=== PATIENT | male | born 2005 | race Caucasian/White ===

== ENCOUNTER 2024-02-27 18:19 | Emergency (ER) | payer OTHER, SELFPAY ==
[2024-02-27 18:35] VITALS: BP 132/78; PULSE 93; RESP 18; TEMP 36.9; O2SAT 100
--- NOTE | 2024-02-27 21:00 | PC.NURSE ---
AT 2100 ON 02/27/2024 THIS PT PRESENTS TO INTAKE DESK AND STATES THAT HE IS LEAVING. PT WAS INSTRUCTED TO RETURN TO ANY ER IF HIS S/S WORSEN OR RETURN. PT AND HIS MOTHER BOTH AMBULATE OUT OF ED WITH STEADY INDEPENDENT GAITS AT THIS TIME. PT APPEARS TO BE IN NO ACUTE DISTRESS.
== END 2024-02-27 21:00 | disposition left against medical advice (07) ==
LOC: ANHED 21:09
DX: S09.90XA Unspecified injury of head, initial encounter (principal); R51.9 Headache, unspecified; R11.0 Nausea; W22.8XXA Striking against or struck by other objects, initial encounter
CPT/HCPCS: 99199

== ENCOUNTER 2024-03-02 16:09 | Emergency (ER) | payer OTHER, SELFPAY ==
--- NOTE | ~2024-03-02 | CT_ITS ---
EXAMINATION: CT brain wo con DATE: 03/02/2024 17:03 INDICATION: head injury . TECHNIQUE: Computed tomography (CT) of the head was performed without intravenous contrast. The mA wa s adjusted according to patient size. Iterative reconstruction technique was employed. The dose-lengt h product was 681.00 mGy-cm. COMPARISON: None. FINDINGS: No acute intracranial hemorrhage or extra-axial fluid collection. No hydrocephalus, mass, or herniation. No acute ischemic infarct. Unremarkable dural venous sinus attenuation. No acute osseous abnormality. The aerated spaces are clear. IMPRESSION: No acute intracranial process. Reviewed, dictated and finalized at location K. [employer] CASE MANAGER
[2024-03-02 16:18] VITALS: BP 136/67; PULSE 105; RESP 14; TEMP 36.3; O2SAT 100
--- NOTE | 2024-03-02 16:20 | ED_ITS ---
HPI - Head Injury General Chief complaint: Head Injury Stated complaint: blunt force trauma to the head at work Time Seen by Provider: 03/02/24 17:24 Focused HPI: 18-year-old male presents to the emergency department for head injury that occurred 5 days ago. Patient states that it was a work injury. States he was working on a vehicle when a large piece of metal hit him in the head and left cheek. He presents with a healing small laceration to the left zygomatic bone. States he did not lose consciousness. He is not anticoagu lated. No ocular injury. States he has been having some intermittent nausea and headache since the injury. GENERAL: Well-appearing, well-nourished, and in no acute distress. HEAD: Normocephalic, atraumatic. CHEST: Clear to auscultation. ?No respiratory distress. HEART: Regular rate and rhythm.? NEURO: ?Alert and oriented x3. Patient screened in triage and initial orders placed.? ?Additional care and disposition to be based upon?diagnostic testing and treatment. History of Present Illness HPI Narrative: Agree with the above note. Review of Systems Review of Systems: All systems reviewed & are unremarkable except as noted in HPI and below Exam Narrative: GENERAL: Well-appearing, well-nourished, and in no acute distress. HEAD: Normocephalic, atraumatic. EYES: PERRLA and EOMI. ENT: Nares clear, no rhinorrhea or epistaxis. Mucous membranes moist. NECK: No midline cervical spinous tenderness, crepitus, step-offs or CHEST: Clear to auscultation. No respiratory distress. HEART: Regular rate and rhythm. No murmur heard. Normal peripheral pulses. ABDOMEN: Soft, nontender, nondistended, normal active bowel sounds. EXTREMITIES: Normal range of motion. No edema. SKIN: Essentially 1 cm laceration to overlying wounds, erythema, induration, fluctuance NEURO: No focal deficits. Alert and oriented x3. Cranial nerves 2-12 intact. Strength 5 out 5 in BUE and BLE. Sensation intact throughout. Normal [id number]. No pronator drift. Course Vital Signs Vital signs: Vital Signs Temperature 97.4 F L 03/02/24 16:18 Pulse Rate 105 H 03/02/24 16:18 Respiratory Rate 14 03/02/24 16:18 Blood Pressure 136/67 03/02/24 16:18 Pulse Oximetry 100 03/02/24 16:18 Temperature 97.4 F L 03/02/24 16:18 Pulse Rate 105 H 03/02/24 16:18 Respiratory Rate 14 03/02/24 16:18 Blood Pressure 136/67 03/02/24 16:18 Pulse Oximetry 100 03/02/24 16:18 MDM - Head Injury MDM Narrative Medical decision making narrative: 18-year-old male presents to emergency department for closed head injury that occurred 5 days ago while at work. See HPI for further history. Vitals with mild tachycardia 105, otherwise unremarkable. Patient is neurovascularly intact with no focal deficits. CT of the head shows no acute intracranial abnormality. There is a well-healing laceration to the left zygomatic bone with overlying skin changes or evidence of secondary infection. Patient was updated on results and advised follow-up with PCP. Discussed strict ED return precautions and cognitive rest with possible concussion. He was given Zofran ibuprofen symptoms advised to follow. Discussed return precautions. He is agreeable to plan verbalized understanding. Discharged in stable condition. Discharge Plan Discharge Clinical Impression: Closed head injury Qualifiers: Encounter type: initial encounter Qualified Code(s): S09.90XA - Unspecified injury of head, initial encounter Patient Disposition: Home, Self-Care Condition: Stable Instructions: Antibiotic Form, Head Injury (ED) Additional Instructions: Return to the emergency department if you develop vision changes, focal numbness or weakness, seizure-like activity or other concerning symptoms. Patient Language: Spanish Prescriptions: New ibuprofen 800 mg tablet 800 mg PO TID PRN (Reason: pain) Qty: 20 0RF ondansetron 4 mg tablet,disintegrating 4 mg PO Q8H Qty: 14 0RF Follow-up/Referrals: PHYSICIAN NOT ON STAFF,NONSTAFF [Primary Care Provider] - Negrito Bradley MD [Physician] - Stand Alone Forms: Work/School Release IP
== END 2024-03-02 18:00 | disposition home or self-care (01) ==
LOC: ANHED 17:45
PROVIDERS: Emergency Provider Physician Assistant
DX: S09.90XA Unspecified injury of head, initial encounter (principal); W22.8XXA Striking against or struck by other objects, initial encounter
CPT/HCPCS: 70450; 99284